=== PATIENT | female | born 1960 ===

== ENCOUNTER 2017-04-06 19:28 | Emergency (ER) | payer SELFPAY ==
[2017-04-06 19:35] VITALS: TEMP 98.4; O2SAT 99; BMI 29.0
[2017-04-06] MEDS ORDERED: Naproxen 550 mg Tab PO STA (20:05)
--- NOTE | 2017-04-06 20:56 | ED PDOC ---
Arrival/HPI - General Chief Complaint: Upper Extremity Problem/Injury Time Seen by Provider: 04/06/17 19:43 Historian: Patient - History of Present Illness Narrative History of Present Illness (Text): 04/06/17 20:49 Patient with past medical history of hypertension however is not on any medication at this time, reports 4 day history of atraumatic left shoulder radiating to the left arm, worse with range of motion. Patient states that she has had the same problem with her right shoulder in the past and was seen and treated at [place] emergency room, patient has a copy of her discharge papers from her visit in October of this year. According to her discharge papers patient had an x-ray of her right shoulder which showed evidence of calcific tendinitis. Patient states that since then she followed up with her PMD, she did not follow-up with an orthopedist, and is currently taking Vicoprofen for her symptoms however she does not like the side effects. Otherwise: (-) chest pain, (-) neck pain, (-) weakness, (-) paresthesias, (-) injury. PMD in [place] Past Medical History - Provider Review Nursing Documentation Reviewed: Yes - Psychiatric Hx Substance Use: No - Surgical History Hx Tubal Ligation: Yes - Anesthesia Hx Anesthesia: Yes Hx Anesthesia Reactions: No Hx Malignant Hyperthermia: No Family/Social History - Physician Review Nursing Documentation Reviewed: Yes Family/Social History: No Known Family HX Smoking Status: Never Smoked Hx Alcohol Use: No Hx Substance Use: No Allergies/Home Meds Allergies/Adverse Reactions: Allergies No Known Allergies Allergy (Verified 04/06/17 19:35) Review of Systems - Review of Systems Constitutional: Normal. absent: Fatigue, Weight Change, Fevers Respiratory: Normal. absent: SOB, Cough, Sputum Cardiovascular: Normal. absent: Chest Pain, Palpitations, Edema Musculoskeletal: Normal, Arthralgias. absent: Back Pain, Neck Pain Skin: Normal. absent: Rash, Pruritis, Skin Lesions Physical Exam - Physical Exam Narrative Physical Exam (Text): 04/06/17 20:56 GENERAL APPEARANCE: Patient is awake, alert, oriented x 3, in mild painful distress. SKIN: Warm, dry; (-) cyanosis. HEAD: (-) scalp swelling, (-) scalp tenderness. NECK: (-) tenderness, (-) stiffness. CHEST AND RESPIRATORY: (-) chest wall tenderness. Lungs: Clear; breath sounds equal bilaterally. UPPER EXTREMITY: (+) tenderness of anterior L shoulder; (-) crepitus, (-) deformity, (-) clavicular tenderness, (+) acromio-clavicular tenderness, (-) AC deformity. Able to abduct from 0 degrees. (-) distal neurovascular deficit. Elbow and wrist: (-) tenderness, (-) limitation of motion except. Vital Signs Temp Pulse Resp BP Pulse Ox 04/06/17 21:25 76 18 145/87 99 04/06/17 19:35 98.4 F 80 16 149/100 H 99 Medical Decision Making ED Course and Treatment: 04/06/17 20:57 57 yo F with past medical history of hypertension however is not on any medication at this time, reports 4 day history of atraumatic left shoulder radiating to the left arm, worse with range of motion. Differential diagnosis : likely tendonitis, consider sprain, bursitis Plan: - XR L shoulder - Naprosyn 04/06/17 20:59 XR L shoulder : (+) small calcification noted to the humeral head and AC joint, (-) fracture, as read by PA. Patient advised that official radiology read of XR is still pending and will call the patient if there is any discrepancy within 24 hours. X-ray results discussed with the patient in great detail and informed of likely diagnosis of tendonitis. Patient advised to rest the shoulder, ice and keep arm in a sling, perform ROM exercises every 6-8 hrs to prevent frozen shoulder. Patient given prescription for naproxen for pain. Otherwise patient was instructed to follow-up with PMD and orthopedic referral provided for reevaluation in 2 day without fail. Advised to follow up elevated bp with pmd. Patient states she fully agrees with and understands discharge instructions. States that she agrees with the plan and disposition. Verbalized and repeated discharge instructions and plan. I have given the patient opportunity to ask any additional questions. - RAD Interpretation Radiology Orders: 04/06/17 20:05 SHOULDER LEFT [RAD] Stat - Medication Orders Current Medication Orders: Discontinued Medications Naproxen (Anaprox Ds) 550 mg PO ONCE STA Stop: 04/06/17 20:06 Last Admin: 04/06/17 20:28 Dose: 550 mg - PA / PATTERN WEAVER / Resident Statement MD/DO has reviewed & agrees with the documentation as recorded. Disposition/Present on Arrival - Present on Arrival Any Indicators Present on Arrival: No History of DVT/PE: No History of Uncontrolled Diabetes: No Urinary Catheter: No History of Decub. Ulcer: No History Surgical Site Infection Following: None - Disposition Have Diagnosis and Disposition been Completed?: Yes Diagnosis: Tendonitis, Shoulder pain, left Disposition: HOME/ ROUTINE Disposition Time: 21:03 Patient Plan: Discharge Condition: STABLE Discharge Instructions (ExitCare): Calcific Tendinitis (ED) Print Language: NAMIBIAN Additional Instructions: Thank you for letting us take care of you today. You were treated for shoulder pain, tendinitis. The emergency medical care you received today was directed at your acute symptoms. If you were prescribed any medication, please fill it and take as directed. It may take several days for your symptoms to resolve. Return to the Emergency Department if your symptoms worsen, do not improve, or if you have any other problems. Please contact your doctor in 2 days for re-evaluation and follow up / or call one of the physicians/clinics you have been referred to that are listed on the Patient Visit Information form that is included in your discharge packet. Bring any paperwork you were given at discharge with you along with any medications you are taking to your follow up visit. Our treatment cannot replace ongoing medical care by a primary care provider (PCP) outside of the emergency department. Thank you for allowing [facility] [place] to be part of your care today. Prescriptions: Naproxen 500 mg PO BID #30 tab Referrals: PCP,NO [Primary Care Provider] - Follow up with primary Waqas Delaney MD [Staff Provider] - Follow up with primary [facility] [Outside] - Follow up with primary Forms: [employer] (E[place]ian), WORK NOTE
[2017-04-06 21:26] VITALS: BP 145/87; PULSE 76; RESP 18
--- NOTE | 2017-04-07 09:47 | RAD ---
PROCEDURE: Radiographs of the Left Shoulder HISTORY: pain COMPARISON: No prior. FINDINGS: BONES: Normal. No fracture. JOINTS: Mild degenerative changes in the acromioclavicular joint. SOFT TISSUES: Normal. OTHER FINDINGS: None. IMPRESSION: Mild degenerative changes in the acromioclavicular joint
== END 2017-04-06 21:26 | disposition home or self-care (01) ==
LOC: ED 19:28 → MERGE 19:28 → ED 21:26
DX: M77.9 Enthesopathy, unspecified (principal); M25.512 Pain in left shoulder